=== PATIENT | male | born 1995 ===

== ENCOUNTER 2018-04-27 17:46 | Emergency (ER) | payer BC, OTHER | END 2018-04-27 20:15 | disposition short-term general hospital (02) | LOC: ED 17:46 ==

== ENCOUNTER 2018-06-10 20:09 | Emergency (ER) | payer BC, OTHER ==
[2018-06-10 20:35] VITALS: BP 118/67; PULSE 73; RESP 20; TEMP 98.1; O2SAT 99
[2018-06-10 21:30] LABS: BASOPHILS % (AUTO) 1 % (0-3); EOSINOPHILS % (AUTO) 3 % (0-9); HEMATOCRIT 40 % (39-53); HEMOGLOBIN 13.5 gm/dl (13.5-17.7); LYMPHOCYTES % (AUTO) 30.9 % (10-50); MEAN CORPUSCULAR HEMOGLOBIN 30.1 pg (27.0-32.0); MEAN CORPUSCULAR HGB CONC 33.7 gm/dl (32.0-36.0); MEAN CORPUSCULAR VOLUME 89 fL (80-100); NEUTROPHILS % (AUTO) 50.1 % (37-80)
[2018-06-10 21:47] LABS: ALBUMIN 3.6 gm/dl (3.4-5.0); ALKALINE PHOSPHATASE 81 IU/L (46-116); ALT 36 IU/L (14-63); AST 17 IU/L (15-37); BILIRUBIN,TOTAL 0.2 mg/dl (0.2-1.0); BLOOD UREA NITROGEN 11 mg/dl (7-18); CALCIUM 8.5 mg/dl (8.5-10.1); CARBON DIOXIDE 30.6 mEq/L (21-32); CHLORIDE 103 mMol/L (98-107); GLUCOSE 107 mg/dl (74-106); POTASSIUM 3.7 mMol/L (3.5-5.1); SODIUM 142 mMol/L (136-145); TOTAL PROTEIN 6.4 gm/dl (6.4-8.2); TROP I < 0.017 ng/ml (0.000-0.056)
== END 2018-06-10 22:01 | disposition home or self-care (01) ==
LOC: ED 20:09
DX: R00.2 Palpitations (principal)
CPT/HCPCS: 80053; 84484; 85025; 93005; 99282; 99283